=== PATIENT | female | born 1955 | race Two or more races ===

== ENCOUNTER 2024-04-23 07:30 | Day surgery (SDC) | payer MEDICARE, SELFPAY ==
[2024-04-23] VITALS (11 sets, daily range): BP systolic 113–142; BP diastolic 57–83; PULSE 60–73; RESP 13–20; TEMP 36.6–36.9; O2SAT 96–100; BMI 24.0
[2024-04-23] MEDS: DiphenhydrAMINE INJ 50 MG/ML VIAL 25 MG IV (08:32)
[2024-04-23] MEDS: MIDAZOLAM INJ 1 MG/ML VIAL 2 ML (ASD USE ONLY) 2 MG IV (08:32)
[2024-04-23] MEDS: fentaNYL CIT INJ 50 mCg/ML AMP 2ML (ASD USE ONLY) IV (08:32)
--- NOTE | 2024-04-23 09:24 | SUR.PHASEII ---
0930 Pt more awake and alert. Denies pain or N/V. Ivis PO fluids. Passing flatus.
--- NOTE | 2024-04-23 10:03 | SUR.PHASEII ---
0955 Pt assessment unchanged. Pt c/o sleepy. Reassurance offered to pt and family. Pt amb to BR-family assisting with pt getting dressed. DC instructions given in [place]ian and in [place]agasy. Both state understanding. Pt meets dc criteria-to home.
== END 2024-04-23 09:55 | disposition home or self-care (01) ==
PROVIDERS: PCP Nurse Practitioner Primary Care; Referring Provider Surgery; Visit Provider Surgery
PROC: 0DBE8ZX Excision of Large Intestine, Via Natural or Artificial Opening Endoscopic, Diagnostic (ICD-10-PCS; CPT 45380; principal; 2024-04-23 08:30)
DX: D12.0 Benign neoplasm of cecum (principal); Z86.0101 Personal history of adenomatous and serrated colon polyps; D12.2 Benign neoplasm of ascending colon; D12.3 Benign neoplasm of transverse colon; K64.1 Second degree hemorrhoids
CPT/HCPCS: 45385; 45380; A4649; J1200; J2250; J3010

== ENCOUNTER → 2024-05-15 | Outpatient (BNVA) | payer MEDICARE, SELFPAY | END | disposition home or self-care (01) | PROVIDERS: PCP Nurse Practitioner Primary Care; Referring Provider Nurse Practitioner Primary Care; Visit Provider Nurse Practitioner Family | DX: R04.0 Epistaxis (principal); R05.9 Cough, unspecified | CPT/HCPCS: 99213 ==

== ENCOUNTER → 2024-06-10 | Outpatient (CLI) | payer MEDICARE, SELFPAY ==
--- NOTE | 2024-06-10 13:00 | XR_ITS ---
Examination: Bone densitometry Date and time of exam:June 10, 2024 1359 hours INDICATIONS: Hysterectomy age 59, smoking history Technique: Lumbar spine and hip total bone mineralization values of an calculated. Peak reference and age match control results have been displayed. Findings: Lumbar spine total bone mineralization is0.814 gm/cm2. This is 2.1 standard deviations below peak reference. This is 0.0 standard deviations at age-matched controls. Hip total bone mineralization is 0.870 gm/cm2 This is 0.7 standard deviations below peak reference. This is 0.7 standard deviations above age-matched controls Impression: There is osteopenia based on lumbar spine measurements. There is osteopenia based on hip measurements
== END | disposition home or self-care (01) ==
PROVIDERS: Referring Provider Nurse Practitioner Primary Care; Visit Provider Nurse Practitioner Primary Care
DX: Z13.820 Encounter for screening for osteoporosis (principal); M85.89 Other specified disorders of bone density and structure, multiple sites
CPT/HCPCS: 77080

== ENCOUNTER → 2024-06-16 | Outpatient (BNVA) | payer MEDICARE, SELFPAY | END | disposition home or self-care (01) | PROVIDERS: PCP Nurse Practitioner Primary Care; Referring Provider Nurse Practitioner Primary Care; Visit Provider Nurse Practitioner Primary Care | DX: Z71.3 Dietary counseling and surveillance (principal); Z71.2 Person consulting for explanation of examination or test findings; R73.03 Prediabetes; R41.3 Other amnesia; Z01.812 Encounter for preprocedural laboratory examination | CPT/HCPCS: 99215 ==

== ENCOUNTER → 2024-07-06 | Outpatient (CLI) | payer MEDICARE, SELFPAY ==
--- NOTE | 2024-07-06 07:30 | XR_ITS ---
Examination: MRI brain without intravenous contrast. Date and time of exam: July 06, 2024 0814 hrs. Indications: Increasing memory loss beginning 4 months ago more severe the last month Technique: Multiple axial and sagittal images of the brain obtained. Siemens high-resolution 1.5 Marlin short bore scanners utilized. Sagittal sections, T1-weighted, TR 500, TE 14, are performed. Axial sections proton-density and T2-weighted have been obtained. Inversion recovery axial images, TR 9, 260, TE 111, TI 2500. Diffusion weighted images, axial sections, TR 4800, TE 128, B value 1000 Axial sections, ADC map, TR 4800, TE 128 Findings: Enlargement of the sella turcica is not present. The optic chiasm and infundibular are not remarkable. Prepontine and interpeduncular cisterns are not enlarged. There is no localized enlargement of the medulla or palma. Fourth ventricle and cerebellar tonsils appear normal in position. No subacute area of hemorrhage density is seen. Mass in the cerebellopontine angle region is not evident. Globes symmetrical. Orbital musculature including medial lateral rectus muscles do not exhibit abnormality. Diffusion-weighted images demonstrate no focus of restricted diffusion. Increased white matter signal moderate Mass effect upon the ventricular system is not identified. Impression: Negative for acute hemorrhage, mass effect or midline shift No acute infarct Moderate chronic microvascular white matter change
== END | disposition home or self-care (01) ==
PROVIDERS: Referring Provider Nurse Practitioner Family; Visit Provider Nurse Practitioner Family
DX: R90.82 White matter disease, unspecified (principal)
CPT/HCPCS: 70551

== ENCOUNTER → 2024-07-29 | Outpatient (BNVA) | payer MEDICARE, SELFPAY | END | disposition home or self-care (01) | PROVIDERS: PCP Nurse Practitioner Primary Care; Referring Provider Nurse Practitioner Primary Care; Visit Provider Nurse Practitioner Primary Care | DX: Z71.2 Person consulting for explanation of examination or test findings (principal) | CPT/HCPCS: 99212; G0463 ==

== ENCOUNTER → 2024-08-17 | Outpatient (BNVA) | payer MEDICARE, SELFPAY | END | disposition home or self-care (01) | PROVIDERS: PCP Nurse Practitioner Primary Care; Referring Provider Nurse Practitioner Primary Care; Visit Provider Nurse Practitioner Primary Care | DX: R73.03 Prediabetes (principal); E55.9 Vitamin D deficiency, unspecified; E78.49 Other hyperlipidemia ==

== ENCOUNTER → 2024-08-28 | Outpatient (BNVA) | payer MEDICARE, SELFPAY | END | disposition home or self-care (01) | PROVIDERS: PCP Nurse Practitioner Primary Care; Referring Provider Nurse Practitioner Primary Care; Visit Provider Nurse Practitioner Primary Care | DX: R41.3 Other amnesia (principal); E78.5 Hyperlipidemia, unspecified; R73.03 Prediabetes; Z71.2 Person consulting for explanation of examination or test findings | CPT/HCPCS: 99213 ==

== ENCOUNTER → 2024-10-20 | Outpatient (BNVA) | payer MEDICARE, SELFPAY | END | disposition home or self-care (01) | PROVIDERS: PCP Nurse Practitioner Primary Care; Referring Provider Nurse Practitioner Primary Care; Visit Provider Nurse Practitioner Primary Care | DX: F17.200 Nicotine dependence, unspecified, uncomplicated (principal); R41.3 Other amnesia; Z00.01 Encounter for general adult medical examination with abnormal findings; R49.0 Dysphonia; K14.8 Other diseases of tongue; Z23 Encounter for immunization | CPT/HCPCS: 90471; 90677; 90715; 93005; 99173; 99214; 99215; 99397; G0009; G0439 ==

== ENCOUNTER → 2024-11-02 | Outpatient (BNVA) | payer MEDICARE, SELFPAY | END | disposition home or self-care (01) | PROVIDERS: PCP Nurse Practitioner Primary Care; Referring Provider Nurse Practitioner Primary Care; Visit Provider Nurse Practitioner Primary Care | DX: Z12.31 Encounter for screening mammogram for malignant neoplasm of breast (principal) | CPT/HCPCS: 99214 ==

== ENCOUNTER → 2024-12-07 | Outpatient (CLI) | payer MEDICARE, SELFPAY ==
--- NOTE | 2024-12-07 11:30 | XR_ITS ---
Examination: Screening digital mammography, bilateral Computer aided detection 3-D breast Tomosynthesis, bilateral Date and time of exam: December 07, 2024, 1145 hours Compared to mammograms dating to December 07, 2015 Indication: Screening Technique: Nonmagnified MLO, CC views of the breasts to been obtained, reconstructed from 3-D Tomosynthesis images. R2 computer aided detection program utilized for evaluation of suspicious masses and/or abnormal calcifications. 3-D Tomosynthesis images obtained. Findings: Scattered areas of fibroglandular density. Benign calcifications. No interval suspicious masses Impression: BI-RADS category II: Benign Findings. Recommend 1 year follow-up mammogram.
== END | disposition home or self-care (01) ==
PROVIDERS: PCP Nurse Practitioner Primary Care; Referring Provider Nurse Practitioner Primary Care; Visit Provider Nurse Practitioner Primary Care
DX: Z12.31 Encounter for screening mammogram for malignant neoplasm of breast (principal); R92.323 Mammographic fibroglandular density, bilateral breasts; R92.1 Mammographic calcification found on diagnostic imaging of breast
CPT/HCPCS: 77063; 77067

== ENCOUNTER 2025-03-29 01:36 | Emergency (ER) | payer MEDICARE, SELFPAY ==
[2025-03-29 01:37] VITALS: BP 137/73; PULSE 87; PULSE 92; RESP 20; RESP 22; TEMP 36.4; O2SAT 96; O2SAT 98; BMI 25.9
--- NOTE | 2025-03-29 01:41 | PD.EDURI ---
Upper Respiratory Inf. RME/HPI General Chief Complaint: Upper Respiratory Infection Stated Complaint: VOMITING Time Seen by Provider: 03/29/25 01:42 Arrival date/time: 03/29/25 01:36 RME / HPI RME / HPI Narrative: Dr. Kumari?s Main ED Evaluation: 69yo female with a history of HTN BIBA from home presents to the ED for a chief complaint of vomiting. Patient was recently diagnosed with pneumonia a few days ago and has been taking her antibiotics. Patient states her shortness of breath and dry cough started worsening ~2300 and had a few emetic episodes, which is new, so she came in for evaluation. Denies any fever, chills, diarrhea, or any other associated symptoms. NKA. Related Data Previous Rx's ?Medication ?Instructions ?Recorded aspirin 81 mg tablet,delayed 81 mg PO QDAY #90 tabs 10/20/24 release atorvastatin 20 mg tablet (Lipitor) 20 mg PO HS #90 tabs 10/20/24 calcium 500 mg (as 1 tab PO QDAY #90 tabs 10/20/24 carbonate)-vitamin D3 15 mcg (600 unit) tablet (Os-Zaki 500 + D3) donepezil 5 mg tablet See Rx Instructions .Route 02/22/25 .COMPLEX #90 tabs albuterol sulfate 90 mcg/actuation 2 inh inhalation Q4H PRN shortness 03/29/25 breath activated powder inhaler of breath #1 ea prednisone 50 mg tablet 50 mg PO QDAY #5 tabs 03/29/25 Allergies Allergy/AdvReac Type Severity Reaction Status Date / Time No Known Allergies Allergy Verified 11/02/24 10:31 Review of Systems Review of Systems Systems Reviewed: All systems reviewed, normal except as documented ED Exam Narrative Physical exam: Generally patient is alert slightly ill-appearing but not dyspneic or tachypneic, heart regular rate and rhythm, lungs show rhonchi bilaterally with fair to good air exchange, chest shows no retractions, abdomen shows no accessory muscles or respiratory use, nontender and nondistended, skin is warm pale and dry without rash, extremities showed no edema with capillary refill less than 2 seconds, neurologic exam shows Emeka Coma Scale 15 Course Course Course Narrative: CXR is ordered for determining the etiology of cough. Quality Measures none Orders Category Date Time Status Bedside COVID-19 Antigen Test NOW Care 03/29/25 01:45 Active Bedside Influenza A&B Antigen Test NOW Care 03/29/25 01:45 Active EKG (ED ONLY) *Do not use* NOW Care 03/29/25 01:45 Completed EKG (ED Only) Stat Exams 03/29/25 01:45 Ordered XR chest 1V portable Stat Exams 03/29/25 01:45 Taken BNP [B-Type Natriuretic Peptide] Stat Lab 03/29/25 02:00 Completed CBC Stat Lab 03/29/25 02:00 Completed CMP [Comprehensive Metabolic Panel] Stat Lab 03/29/25 02:00 Completed Influenza A & B Rapid Panel Stat Lab 03/29/25 02:00 Completed RSV [Respiratory Syncytial Virus Ag] Stat Lab 03/29/25 02:00 Completed Troponin I Stat Lab 03/29/25 02:00 Completed ALBUTEROL RT 0.5ml [Proventil Rt 0.5ml] Med 03/29/25 01:44 Discontinued 2.5 mg INH X1 ONE Ipratropium [place] Rt Lilian [Atrovent Rt Lilian] Med 03/29/25 01:44 Discontinued 0.5 mg INH X1 ONE Sodium Chloride Rt Lilian 0.9% [NS Rt Lilian 0.9%] Med 03/29/25 01:44 Active 3 ml INH PRN PRN predniSONE Med 03/29/25 02:42 Once 60 mg PO X1 ONE Vital Signs Vital signs: Vital Signs Temperature 97.6 F 03/29/25 01:37 Pulse Rate 87 03/29/25 01:37 Respiratory Rate 22 H 03/29/25 01:37 Blood Pressure 137/73 H 03/29/25 01:37 Pulse Oximetry (%) 96 03/29/25 01:37 Oxygen Delivery Method Room Air 03/29/25 01:37 Upper Respiratory Infection MDM Narrative MDM Narrative:: Scribe Attestation: 03/29/25 Lazara Andrade am scribing for and in the presence of Dr. Kumari. Chest x-ray shows no consolidation. EKG shows normal sinus rhythm at a rate of 80 without criteria for ischemic change. Troponin is not elevated. BNP is normal. There is no elevation of white count. RSV is negative. Flu is negative. COVID is negative. Patient received albuterol 2.5 mg and Atrovent 0.5 mg Med-Neb treatment x 1 as well as Solu-Medrol 60 mg p.o. She will be discharged on albuterol and prednisone to be taken as prescribed. She does smoke on a regular basis and she was counseled on the need to decrease her smoking. She is currently taking amoxicillin at this time. She may continue to take that and finish the prescription prescribed to her at an outside urgent care. Patient data External records reviewed:: [facility] previous records (Per chart review, patient has no previous ED visits or admissions to this facility.) and EMS form Clinical information provided by:: patient and EMS Social determinants that could affect healthcare access:: none Patient has the following chronic illnesses:: HTN How is presenting disease/condition affected by chronic disease/condition?: uneffected by Evaluation data The following diagnostics were reviewed and interpreted by me:: lab results, radiology exam(s) and EKG tracing(s) Lab and/or radiology exams considered but not ordered:: none Interpretation Summary: See MDM Medications / Prescriptions Medications or Prescriptions considered but not ordered:: none Medication administrations:: Medication Administration History Prednisone (Prednisone 20 Mg Tablet) 60 mg PO X1 ONE Stop: 03/29/25 02:43 Sodium Chloride (Sodium Chloride Rt Lilian 0.9% 3 Ml Nebu) 3 ml INH PRN PRN PRN Reason: SOLN Stop: 04/28/25 01:43 Last Admin: 03/29/25 02:04 Dose: 3 ml Documented By: ISMAEL Discontinued Medications Albuterol (Albuterol Rt 2.5 Mg/0.5 Ml Nebu) 2.5 mg INH X1 ONE Stop: 03/29/25 01:45 Last Admin: 03/29/25 02:04 Dose: 2.5 mg Documented By: ISMAEL Ipratropium [place] (Ipratropium Rt 0.5 Mg/ 2.5 Ml Nebu) 0.5 mg INH X1 ONE Stop: 03/29/25 01:45 Last Admin: 03/29/25 02:04 Dose: 0.5 mg Documented By: ISMAEL see above Consultations Consultation(s) initiated? (list below): No Diagnosis Upper Respiratory Differential Diagnosis: other (See MDM) Most likely diagnosis given after review of the tests above:: see clinical impression below Admission Indicated Admission indicated?: not indicated Admission Request Was there a request for admission?: No Disposition Plan Disposition Plan: Discharge Discharge Attestation Discharge Attestation: The patient and all family members were given an opportunity to ask questions and understood the discharge instructions. Discharge instructions specifically effects, indications for sooner follow up or return to the emergency department, and the expected course of current diagnosis. Patient condition: Stable Discharge Plan Plan Patient Disposition: HOME (Self Care) Prescriptions/Referrals Prescriptions/Med Rec: New albuterol sulfate 90 mcg/actuation aerosol powdr breath activated 2 inh inhalation Q4H PRN (Reason: shortness of breath) Qty: 1 0RF prednisone 50 mg tablet 50 mg PO QDAY Qty: 5 0RF No Action diphth,pertus(acell),tetanus 2.5-8-5 Lf-mcg-Lf/0.5mL syringe 0.5 ml IM ONCE Qty: 0.5 0RF calcium carbonate-vitamin D3 [Os-Zaki 500 + D3] 500 mg-15 mcg (600 unit) tablet 1 tab PO QDAY Qty: 90 0RF atorvastatin [Lipitor] 20 mg tablet 20 mg PO HS Qty: 90 1RF aspirin 81 mg tablet,delayed release (DR/EC) 81 mg PO QDAY Qty: 90 1RF donepezil 5 mg tablet See Rx Instructions .ROUTE .COMPLEX Qty: 90 0RF Dose Instruction: TAKE 1 TABLET BY MOUTH EVERY DAY AT BEDTIME Rx Instructions: TAKE 1 TABLET BY MOUTH EVERY DAY AT BEDTIME Referrals: No Primary/Family,Physician [Referring Provider] - In 1 week Problem List Clinical Impression: COPD exacerbation Patient/Caregiver Discharge Instructions Education Materials: ED COPD Flare Additional Instructions: Stop smoking. Medication as prescribed. Continue current medications. Follow-up with your doctor. Return to ER as needed or if condition worsens. Print Language: [place]ar[place] Stand Alone Forms: Tamia Award Info., Patient Portal Info Letter
--- NOTE | 2025-03-29 01:45 | XR_ITS ---
EXAMINATION: AP chest single view TECHNIQUE: AP portable upright chest single view Date and time: March 29, 2025, 0218 hours INDICATIONS: Shortness of breath coughing beginning this week FINDINGS: Normal heart size No lobar pneumonia Osseous structures are demineralized IMPRESSION: No lobar pneumonia
--- NOTE | 2025-03-29 01:45 | EKG_ITS ---
[facility] Test Date: 2025-03-29 Pat Name: HARESH SHEPARD Department: Room: - Gender: Female Exchange Consultant: : [id number] Requested By: Sergio Coe Order Number: [id number] Reading MD: Sergio Coe Measurements Intervals [place] Rate: 88 P: 53 SC: 156 QRS: 52 QRSD: 94 T: 40 QT: 376 QTc: 455 Interpretive Statements SINUS RHYTHM MODERATE ST DEPRESSION [0.05+ mV ST DEPRESSION] Compared to ECG 10/19/2020 11:40:54 ST (T wave) deviation now present /store/S0/[id number].pdf
[2025-03-29 02:04] VITALS: PULSE 119
[2025-03-29] MEDS: ALBUTEROL RT 2.5 MG/0.5 ML NEBU INH (02:04)
[2025-03-29] MEDS: IPRATROPIUM RT 0.5 MG/ 2.5 ML NEBU INH (02:04)
[2025-03-29] MEDS: SODIUM CHLORIDE RT SOL 0.9% 3 ML NEBU INH (02:04)
[2025-03-29 02:07] LABS: Basophils # (Auto) 0.1 Thou/mm3 (0.0-0.2); Basophils % (Auto) 1 % (0-2.5); Eosinophils # (Auto) 0.1 Thou/mm3 (0.0-0.5); Eosinophils % (Auto) 2 % (0-10); Hematocrit 35.6 % (36.0-46.0); Hemoglobin 12.1 g/dL (12.0-16.0); Immature Granulocytes Auto 0.01 Thou/mm3 (0.00-0.00); Lymphocytes # (Auto) 2.4 Thou/mm3 (1.0-4.8); Lymphocytes % (Auto) 32 % (10-50); Mean Corpuscular HGB Conc 34.0 g/dl (31.0-37.0); Mean Corpuscular Hemoglobin 28.7 pg (25.0-35.0); Mean Corpuscular Volume 84 fL (80-100); Monocytes # (Auto) 0.5 Thou/mm3 (0.0-0.8); Monocytes % (Auto) 7 % (0-12); Neutrophils # (Auto) 4.3 Thou/mm3 (1.8-7.7); Neutrophils % (Auto) 58 % (37-80); Nucleated Red Blood Cell # 0.00 Thou/mm3 (0.00-0.00); Nucleated Red Blood Cell % 0 /100 WBC (0); Platelet Count 274 Thou/mm3 (140-440); RDW Standard Deviation 40.1 fL (36.4-46.3); Red Blood Count 4.22 Miln/mm3 (4.00-5.20); White Blood Count 7.5 Thou/mm3 (3.6-11.0)
[2025-03-29 02:09] VITALS: PULSE 92; RESP 19; O2SAT 97
[2025-03-29 02:25] LABS: B-Type Natriuretic Peptide < 20 pg/mL (0-100)
[2025-03-29 02:26] LABS: Alanine Aminotransferase 13 U/L (10-49); Albumin, Serum 4.4 gm/dL (3.4-4.8); Albumin/Globulin Ratio 2.0 (1.2-2.2); Alkaline Phosphatase 74 U/L (46-116); Anion Gap 10 (7-16); Aspartate Amino Transferase 21 U/L (0-34); BUN/Creatinine Ratio 13 Ratio (12-20); Bilirubin,Total 0.4 mg/dL (0.3-1.2); Blood Urea Nitrogen 9 mg/dL (9-23); Calcium 9.1 mg/dL (8.3-10.6); Calcium (Corrected) 9.1 mg/dL (8.5-10.1); Carbon Dioxide 25.3 mMol/L (20.0-31.0); Chloride 109 mMol/L (98-107); Creatinine (Component) 0.7 mg/dL (0.6-1.3); Estimated Creatinine Clearance 73.8 mL/min (>60); Globulin 2.2 gm/dL (2.3-3.5); Glucose 105 mg/dL (74-106); Osmolality,Calculated 285 (275-295); Potassium 3.4 mMol/L (3.4-5.1); Sodium 144 mMol/L (136-145); Total Protein 6.6 gm/dL (5.7-8.2); Troponin I < 0.020 ng/mL (0.0-0.045); eGFR > 60 See Note
[2025-03-29 02:29] LABS: Influenza A Ag Negative; Influenza B Ag Negative; Respiratory Syncytial Virus Ag Negative (Negative)
[2025-03-29 02:52] VITALS: BP 140/56; PULSE 85; RESP 20; O2SAT 98
== END 2025-03-29 02:53 | disposition home or self-care (01) ==
PROVIDERS: Emergency Provider Emergency Medicine; PCP Nurse Practitioner Family
DX: J44.1 Chronic obstructive pulmonary disease with (acute) exacerbation (principal); I10 Essential (primary) hypertension
CPT/HCPCS: 36415; 71045; 80053; 83880; 84484; 85025; 87502; 87634; 87811; 93005; 94640; 99283; J7512